=== PATIENT | female | born 1960 | race African-American/Black ===

== ENCOUNTER 2017-09-13 16:09 | Outpatient (CLI) | payer OTHER | END 2017-09-13 16:10 | disposition home or self-care (01) | LOC: BICMAMMO 16:09 | PROVIDERS: ATTEND Family Medicine | DX: Z12.31 Encounter for screening mammogram for malignant neoplasm of breast (principal) | CPT/HCPCS: 77067 ==

== ENCOUNTER 2018-01-12 09:47 | Outpatient (CLI) | payer OTHER ==
--- NOTE | 2018-01-12 10:50 | RAD ---
THREE LATERAL VIEWS LUMBAR SPINE WITH FLEXION AND EXTENSION VIEWS: DATE: 01/12/2018. HISTORY: Lumbar stenosis with claudication. COMPARISON: 02/19/2010. FINDINGS: There appear to be 5 [id number] lumbar-type vertebral bodies. There is grade I anterolisthesis of L4 on L5 with a degree of anterolisthesis unchanged between flexion and extension views measuring 11 mm. There is loss of intervertebral disk height at the L4-5 and L5-S1 levels also noted on prior exam. Facet degenerative changes are present. A moderate amount of retained fecal material is seen throughout the colon. Mild degenerative change is seen in the lower thoracic spine. IMPRESSION: Grade I anterolisthesis of L4 on L5, the degree of listhesis has increased from prior study in 2009 m easuring 11 mm on today's examination. There is no abnormal translational motion between flexion and extension views. POS: [facility]
--- NOTE | 2018-01-12 12:16 | MRI ---
MRI LUMBAR SPINE NONCONTRAST: DATE: 01/12/18 HISTORY: 57-year-old female with M48.062 lumbar stenosis with claudication. COMPARISON: 03/01/10. FINDINGS: For the purposes of this report, it will be assumed that there are five lumbar-type vertebrae. Again noted is the slightly greater than 2 cm right renal mid pole lateral parenchymal cyst. No major pathology of perivertebral spaces. Vertebral body heights are maintained. Conus medullaris terminate s at L1-2. The cauda equina is arranged in a symmetrical, normal distribution throughout the thecal s ac. No major bone marrow signal abnormality. T11-12: Mild disc bulge. Mild central spinal canal stenosis. No high grade neural foraminal stenosis . T12-L1: Slight degenerative retrolisthesis of T12 on L1. Mild diffuse disc bulge. Mild central spina l canal stenosis. No high grade neural foraminal stenosis. No interval change. L1-2: Minimal retrolisthesis of L1 on L2, but otherwise normal. L2-3: Minimal retrolisthesis of L2 on L3. Disc space maintained. Bilateral mild to moderate degenera tive facet changes. No central stenosis. No high grade neural foraminal stenosis. No major interval c hange. L3-4: Minimal-mild disc space narrowing. Diffuse disc bulge. Moderate to severe bilateral degenerati ve facet hypertrophy. Ligamentum flavum thickening has slightly worsened. Mild disc bulge has slightl y worsened. These changes result in interval decrease in caliber of the spinal canal, now mild to mod erate central spinal canal stenosis. Posterior epidural fat pad. Moderate thecal sac stenosis. Mild r ight neural foraminal stenosis. Moderate left neural foraminal stenosis. Left lateral and far lateral broad based disc protrusion with annular fissure. L4-5: Severe bilateral degenerative facet disease has slightly worsened. This causes a Grade I anter olisthesis of L4 on L5, which has also become worse. This spondylolisthesis, plus diffuse disc bulge and degenerative facet hypertrophy, results in moderate bilateral neural foraminal stenosis, and mode rate to severe central spinal canal stenosis with lateral recess stenosis bilaterally, all worse sinc e the previous study. Mild to moderate disc space narrowing has worsened. L5-S1: Somewhat severe disc space narrowing. Extensive patchy T2 hyperintense signal abnormalities i n the disc space represent extensive annular fissures. The bilaterally hypoplastic facet joints have mild to moderate degenerative changes. No high grade acquired central spinal canal stenosis. Moderate bilateral neural foraminal stenosis. Modic Type II end plate marrow changes. No major interval lei e. IMPRESSION: 1. Lumbar spondylosis with lower level moderate degenerative disc disease and high grade facet osteo arthrosis. 2. At L4-5, the severe degenerative facet disease has become worse, resulting in a greater degree of Grade I spondylolisthesis, resulting in a greater degree of high grade central spinal canal stenosis , and moderate bilateral neural foraminal stenosis. 3. Worsening of facet osteoarthrosis at L3-4, resulting in a greater degree of moderate central spin al canal stenosis. NIKOLAS Small POS: [facility]
== END 2018-01-12 09:48 | disposition home or self-care (01) ==
LOC: TBSIIMAG 09:47
PROVIDERS: ATTEND Neurological Surgery
DX: M48.062 Spinal stenosis, lumbar region with neurogenic claudication (principal); M43.16 Spondylolisthesis, lumbar region; M51.36 Other intervertebral disc degeneration, lumbar region; M47.896 Other spondylosis, lumbar region; M99.83 Other biomechanical lesions of lumbar region
CPT/HCPCS: 72100; 72148

== ENCOUNTER 2021-06-01 14:02 | Outpatient (CLI) | payer OTHER | END 2021-06-01 14:03 | disposition home or self-care (01) | LOC: BICMAMMO 14:02 | PROVIDERS: ATTEND Family Medicine | DX: N63.20 Unspecified lump in the left breast, unspecified quadrant (principal) | CPT/HCPCS: 77066; G0279 ==